=== PATIENT | female | born 1985 | race Caucasian/White ===

== ENCOUNTER 2017-03-29 09:00 | Emergency (ER) | payer OTHER ==
[2017-03-29] MEDS ORDERED: Prochlorperazine 10 MG/2 ML VIAL ONE (09:41)
[2017-03-29] MEDS ORDERED: Ketorolac Tromethamine 30 MG/ML VIAL ONE (09:41)
[2017-03-29] MEDS ORDERED: diphenhydrAMINE 50 MG/ML VIAL ONE (09:41)
[2017-03-29] MEDS ORDERED: Ondansetron HCl/PF 4 MG/2 ML Vial ONE (09:41)
[2017-03-29] MEDS ORDERED: Oxymetazoline HCl 0.05% ( 15 ML ) ONE (10:11)
== END 2017-03-29 11:29 | disposition home or self-care (01) ==
LOC: SCSER 09:00
DX: G43.909 Migraine, unspecified, not intractable, without status migrainosus (principal); F41.9 Anxiety disorder, unspecified; Z79.899 Other long term (current) drug therapy
CPT/HCPCS: 96361; 96374; 96375; J0780; J1200; J1885; J2405

== ENCOUNTER 2018-06-06 16:31 | Emergency (ER) | payer OTHER ==
[2018-06-06 17:29] LABS: Pregu Control Background? CLEAR/WHITE (CLR/WHITE); Pregu Control Bar Appear? YES (CONTROL BAR); Specific Gravity 1.021 (1.002-1.036)
[2018-06-06 17:30] LABS: Pregnancy Test - Urine (BHCG) Negative (Negative)
[2018-06-06] MEDS ORDERED: Midazolam HCl 5 mg/ml Vial ONE (18:08)
[2018-06-06] MEDS ORDERED: Nitroglycerin 0.4 MG TAB (25 Tab Bottle) ONE (18:08)
--- NOTE | 2018-06-06 22:28 | CON ---
DATE OF CONSULTATION: 06/06/2018 REASON FOR CONSULTATION: Esophageal foreign body. HISTORY OF PRESENT ILLNESS: Vee Fierro is a very pleasant 33-year-old woman, who was transferred here from the [facility] this evening with symptoms of esophageal foreign body obstruction. She has a history of allergies, depression and anxiety. She has not had any surgeries on the chest or abdomen. She does not have any chronic heartburn and does not take any acid suppression, but she does have chronic dysphagia, which has been going on for several years. Intermittently, she will have to regurgitate food back up. She feels as if it hangs up transiently in the neck. She has never undergone EGD or other investigation of this. She does not have any family history of esophageal disease. She does not smoke and alcohol use is rare. This afternoon about 3:30 p.m., she was eating cajun shrimp pasta and felt as if a piece of shrimp lodged in her lower neck. This sensation persisted for several hours and prompted her presentation to the emergency department. They tried glucagon which was ineffective. She was in the ambulance transferring here for possible EGD, when she was suddenly able to regurgitate up a significant amount of food material. The sensation in her neck resolved. Since that time, she has been able to swallow her secretions. She is able to drink water without difficulty in the room today. She feels back to normal. She has no other symptoms. REVIEW OF SYSTEMS: Full review of systems including constitutional, head, eyes, ears, nose, throat, GI, , cardiovascular, respiratory, musculoskeletal, neurologic systems is negative except as noted in the HPI. PAST MEDICAL HISTORY: Allergies, ADD, depression and anxiety. ALLERGIES: NO KNOWN DRUG ALLERGIES. OUTPATIENT MEDICATIONS: 1. Strattera. 2. Fish oil. 3. Cetirizine. 4. Effexor. 5. Adderall. 6. Oral contraceptive. FAMILY HISTORY: Negative for esophageal malignancy. SOCIAL HISTORY: No smoking or drug use. Alcohol use is occasional. PHYSICAL EXAMINATION: VITAL SIGNS: Blood pressure is 124/80, pulse 93, 100% oxygen saturation on room air, temperature is 98.1. GENERAL: A 33-year-old woman sitting up in bed comfortably, in no distress. SKIN: No jaundice. No rash visible or palpable. HEENT: Eyes, no scleral icterus. Extraocular movements are intact. ENT, mucous membranes are moist. No oral lesions. LYMPH: No submandibular or supraclavicular lymphadenopathy. Thyroid nontender to palpation. HEART: Regular rate and rhythm. LUNGS: Clear to auscultation bilaterally. ABDOMEN: Bowel sounds are present. Soft and nontender to palpation throughout. EXTREMITIES: No peripheral edema. VESSELS: Radial pulses are 2+ bilaterally. NEURO: Cranial nerves 2 through 12 intact bilaterally. No focal deficits. ASSESSMENT AND PLAN: 1. Esophageal food bolus obstruction, now resolved after regurgitation. 2. Chronic intermittent dysphagia. The patient's esophageal obstruction has resolved just within the past hour en route to the emergency department. She is able to drink liquids without difficulty. The foreign body sensation in her throat has resolved and she actually feels back to normal. She does have this chronic dysphagia and recurrent transient episodes, which does warrant further investigation. She will require EGD. However, this does not need to be performed urgently. I think she can be discharged home, and we will be contacting her to set up outpatient EGD in the next couple of weeks. In the meantime, I do have a high clinical suspicion for possible eosinophilic esophagitis. Other possibilities would include esophageal stricture or esophageal ring. I would like her to go ahead and start taking Protonix 40 mg daily for now. The patient understands and agrees with the plan. She will be chewing her food thoroughly. Job ID: [id number]
== END 2018-06-06 20:17 | disposition short-term general hospital (02) ==
LOC: SCSER 16:31 → ERS 20:17
DX: T18.128A Food in esophagus causing other injury, initial encounter (principal); F90.9 Attention-deficit hyperactivity disorder, unspecified type; F41.9 Anxiety disorder, unspecified; Z79.899 Other long term (current) drug therapy
CPT/HCPCS: 81025; 99283; J1610; J2250

== ENCOUNTER 2018-06-25 09:44 | Day surgery (SDC) | payer OTHER ==
[2018-06-24 14:50] VITALS: BMI 28.0
[2018-06-25] MEDS ORDERED: PROPOFOL 200 MG/20 ML VIAL ONE (12:00)
--- NOTE | 2018-06-25 17:24 | OP ---
DATE OF PROCEDURE: 06/25/2018 [employer]PER[employer] SURGEON: None. PROCEDURES PERFORMED: Esophagogastroduodenoscopy with esophageal biopsies. INDICATION: 1. Chronic dysphagia. 2. Suspicion for probable eosinophilic esophagitis. 3. Recent foreign body obstruction in the esophagus, resolved on its own a couple of weeks ago, now with much improvement in dysphagia on Protonix 40 mg daily. MEDICATIONS: See Anesthesia record. FINDINGS: After discussion of the risks, benefits, and alternatives of the procedure, informed consent was obtained and witnessed. Pre-endoscopic cardiopulmonary examination was satisfactory. Time-out was performed before sedation was achieved. Sedation was achieved with Anesthesia assistance in the endoscopy unit. A Pentax adult upper endoscope was placed into the oropharynx and passed through the cricopharyngeus under direct visualization. The entire esophageal mucosa from the proximal to the distal esophagus had a uniform appearance suggestive of eosinophilic esophagitis. There was diffuse edema, some concentric rings, and white specks throughout the mucosa. There was no discrete stricture visualized. The GE junction appeared normal. I did not perform esophageal dilation. I did obtain biopsies from the mid esophagus to evaluate for probable eosinophilic esophagitis, rule out Carly. The endoscope was advanced into the stomach. Forward and retroflexed views of the entire gastric mucosa were obtained. The gastric mucosa appeared normal. The endoscope was passed through a normal appearing pylorus and into the first and second portions of the duodenum, which also appeared normal. The upper endoscope was completely withdrawn and the patient allowed to recover. The patient tolerated the procedure well. There were no immediate postprocedure complications. IMPRESSION: 1. Diffuse esophageal edema, concentric rings, and white specks, also suggestive of eosinophilic esophagitis. Biopsies obtained from the midesophagus. 2. No discrete esophageal stricture. 3. Otherwise normal esophagogastroduodenoscopy. RECOMMENDATION: 1. Continue with Protonix 40 mg daily. 2. Follow up biopsy results. 3. Follow up in GI clinic in about a month. Job ID: [id number]
== END 2018-06-25 12:00 | disposition home or self-care (01) ==
LOC: SDC 09:44
PROVIDERS: ATTEND Internal Medicine
PROC: 0DB28ZX Excision of Middle Esophagus, Via Natural or Artificial Opening Endoscopic, Diagnostic (ICD-10-PCS; principal; 2018-06-25)
DX: K20.0 Eosinophilic esophagitis (principal); R13.10 Dysphagia, unspecified; Z79.899 Other long term (current) drug therapy
CPT/HCPCS: 88305; 88312; 88313; J2704